=== PATIENT | male | born 2000 | race Two or more races ===

== ENCOUNTER 2023-01-06 19:17 | Emergency (ER) | payer OTHER ==
[~2023-01-06] VITALS: Ht 170.2 cm; Wt 71.7 kg
== END 2023-01-06 21:59 | disposition home or self-care (01) ==
LOC: ER 19:17
DX: S91.321A Laceration with foreign body, right foot, initial encounter (principal); V19.9XXA Pedal cyclist (driver) (passenger) injured in unspecified traffic accident, initial encounter; Y93.89 Activity, other specified; Y92.89 Other specified places as the place of occurrence of the external cause; Y99.9 Unspecified external cause status